=== PATIENT | male | born 1945 | race Caucasian/White ===

== ENCOUNTER 2017-02-06 10:34 | Outpatient (CLI) | payer MEDICARE, BC ==
[2017-02-06 10:48] LABS: Mean Corpuscular HGB CONC 35.4 g/dL (32.0-36.0); Mean Corpuscular Hemoglobin 32.4 pg (27.0-31.0); Mean Corpuscular Volume 91.5 fl (80.0-94.0); Mean Platelet Volume 9.1 fL (7.4-10.4); Platelet Count 154 thou/uL (130-400); RBC Distribution Width 11.8 % (11.5-14.5); Red Blood Cell (RBC) Count 4.94 mill/uL (4.70-6.10)
== END 2017-02-06 10:35 | disposition home or self-care (01) ==
LOC: BURLAB 10:34
PROVIDERS: ATTEND Specialist
DX: D75.1 Secondary polycythemia (principal)
CPT/HCPCS: 36415; 85027

== ENCOUNTER 2017-09-05 17:25 | Emergency (ER) | payer MEDICARE, BC ==
[2017-09-05] MEDS ORDERED: Insulin Regular 300 UNITS/3 ML VIAL ONE (18:06)
[2017-09-05 18:15] LABS: #Basophils 0.1 thou/uL (0.0-0.2); #Lymphocytes 0.8 thou/uL (1.20-3.40); #Monocytes 0.3 thou/uL (0.11-0.59); #Neutrophils 9.3 thou/uL (1.40-6.50); %Basophils 0.5 % (0.0-1.0); %Eosinophils 0.1 % (0.0-10.0); %Lymphocytes 7.6 % (21.0-51.0); %Monocytes 2.5 % (0.0-10.0); %Neutrophils 89.4 % (42.0-75.0); Hemoglobin 14.7 g/dL (14.0-18.0); Mean Corpuscular HGB CONC 34.9 g/dL (32.0-36.0); Mean Corpuscular Hemoglobin 32.7 pg (27.0-31.0); Mean Corpuscular Volume 93.9 fl (80.0-94.0); Mean Platelet Volume 8.3 fL (7.4-10.4); Platelet Count 206 thou/uL (130-400); RBC Distribution Width 10.8 % (11.5-14.5); Red Blood Cell (RBC) Count 4.49 mill/uL (4.70-6.10); White Blood Cell (WBC) Count 10.4 thou/uL (4.8-10.8)
[2017-09-05 18:32] LABS: ALT (SGPT) 44 U/L (8-55); AST (SGOT) 18 U/L (5-34); Alkaline Phosphatase 93 U/L (40-150); Anion Gap 17 mmol/L (10-20); BUN (Urea Nitrogen) 23 mg/dL (8.4-25.7); Calc. Creatinine Clearance 0 mL/min (70-130); Calcium 8.9 mg/dL (7.8-10.44); Carbon Dioxide 20 mmol/L (23-31); Chloride 101 mmol/L (98-107); Estimated GFR-MDRD 44; Globulin 3.3 g/dL (2.4-3.5); Glucose 403 mg/dL (83-110); Potassium 4.5 mmol/L (3.5-5.1); Protein, Total 7.3 g/dL (5.8-8.1); Sodium 133 mmol/L (136-145)
== END 2017-09-05 19:55 | disposition home or self-care (01) ==
LOC: BURERS 17:25
DX: E11.65 Type 2 diabetes mellitus with hyperglycemia (principal); M54.16 Radiculopathy, lumbar region; Z79.84 Long term (current) use of oral hypoglycemic drugs; Z79.899 Other long term (current) drug therapy
CPT/HCPCS: 36416; 80053; 85025; 96360; J1815

== ENCOUNTER 2019-03-18 16:38 | Emergency (ER) | payer MEDICARE, BC ==
[2019-03-18] MEDS ORDERED: Ondansetron PF 4 MG/2 ML Vial ONE ×3 (17:24→21:29)
[2019-03-18 18:00] LABS: #Basophils 0.1 thou/uL (0.0-0.2); #Eosinphils 0.2 thou/uL (0.0-0.7); #Lymphocytes 1.4 thou/uL (1.20-3.40); #Monocytes 0.6 thou/uL (0.11-0.59); #Neutrophils 10.5 thou/uL (1.40-6.50); %Basophils 1.1 % (0.0-1.0); %Eosinophils 1.9 % (0.0-10.0); %Lymphocytes 10.6 % (21.0-51.0); %Monocytes 4.8 % (0.0-10.0); %Neutrophils 81.6 % (42.0-75.0); Hemoglobin 13.7 g/dL (14.0-18.0); Mean Corpuscular HGB CONC 32.8 g/dL (32.0-36.0); Mean Corpuscular Hemoglobin 30.6 pg (27.0-31.0); Mean Corpuscular Volume 93.4 fL (78.0-98.0); Platelet Count 187 thou/uL (130-400); RBC Distribution Width 11.4 % (11.5-14.5); Red Blood Cell (RBC) Count 4.48 mill/uL (4.70-6.10); White Blood Cell (WBC) Count 12.9 thou/uL (4.8-10.8)
[2019-03-18 18:14] LABS: ALT (SGPT) 33 U/L (8-55); AST (SGOT) 23 U/L (5-34); Albumin 4.1 g/dL (3.4-4.8); Alkaline Phosphatase 83 U/L (40-150); Anion Gap 13 mmol/L (10-20); BUN (Urea Nitrogen) 12 mg/dL (8.4-25.7); Bilirubin, Total 0.9 mg/dL (0.2-1.2); Calc. Creatinine Clearance 0 mL/min (70-130); Calcium 9.7 mg/dL (7.8-10.44); Carbon Dioxide 24 mmol/L (23-31); Chloride 101 mmol/L (98-107); Estimated GFR-MDRD 53; Globulin 3.1 g/dL (2.4-3.5); Glucose 164 mg/dL (83-110); Potassium 4.1 mmol/L (3.5-5.1); Protein, Total 7.2 g/dL (5.8-8.1); Sodium 134 mmol/L (136-145)
[2019-03-18] MEDS ORDERED: Magnesium Citrate 300 ML BOT ONE (18:39)
[2019-03-18] MEDS ORDERED: Metoclopramide HCl 10 MG/2 ML VIAL ONE (18:39)
--- NOTE | 2019-03-18 19:25 | RAD ---
ACUTE ABDOMEN SERIES: 03/18/2019 COMPARISON: Chest film from 02/08/2013. FINDINGS: The abdominal portion of this study shows no free air beneath the diaphragm. The gas pattern is nons pecific, with gas being mostly in the colon, but some is seen in a few loops of small bowel. There d oes not appear to be any great small bowel dilation at the moment to suggest obstruction. A moderate amount of fecal material is seen in the colon. No calcifications of concern are seen. Some phlebol iths are present in the pelvis. A calcification over the left iliac crest does not appear concerning and was present on a 04/07/2015 lumbar spine series. Some mild degenerative changes are seen in the spine itself. IMPRESSION: 1. Nonspecific abdominal findings. 2. Perhaps mild constipation. POS: HOME
[2019-03-18] MEDS ORDERED: Fleet Enema 133 ML BOT ONE ×2 (19:43→19:44)
[2019-03-18] MEDS ORDERED: Morphine 4 MG/ML VIAL ONE (19:54)
== END 2019-03-18 22:52 | disposition home or self-care (01) ==
LOC: BURERS 16:38
DX: K52.9 Noninfective gastroenteritis and colitis, unspecified (principal); K59.00 Constipation, unspecified; F41.9 Anxiety disorder, unspecified; F32.9 Major depressive disorder, single episode, unspecified; E11.9 Type 2 diabetes mellitus without complications; Z79.82 Long term (current) use of aspirin; Z79.899 Other long term (current) drug therapy
CPT/HCPCS: 36416; 74022; 80053; 83605; 85025; 93005; 96361; 96374; 96375; 96376; J2270; J2405; J2765

== ENCOUNTER 2019-03-19 02:37 | Emergency (ER) | payer MEDICARE, BC ==
[2019-03-19] MEDS ORDERED: Promethazine HCl 25 MG/ML VIAL ONE (02:53)
[2019-03-19] MEDS ORDERED: Morphine 4 MG/ML VIAL ONE (02:53)
[2019-03-19 02:57] LABS: #Basophils 0.1 thou/uL (0.0-0.2); #Lymphocytes 1.1 thou/uL (1.20-3.40); #Monocytes 0.6 thou/uL (0.11-0.59); #Neutrophils 17.4 thou/uL (1.40-6.50); %Basophils 0.4 % (0.0-1.0); %Eosinophils 0.1 % (0.0-10.0); %Lymphocytes 5.5 % (21.0-51.0); Hemoglobin 14.2 g/dL (14.0-18.0); Mean Corpuscular HGB CONC 33.8 g/dL (32.0-36.0); Mean Corpuscular Hemoglobin 30.7 pg (27.0-31.0); Mean Corpuscular Volume 90.8 fL (78.0-98.0); Mean Platelet Volume 8.3 fL (7.4-10.4); Platelet Count 200 thou/uL (130-400); RBC Distribution Width 11.1 % (11.5-14.5); Red Blood Cell (RBC) Count 4.62 mill/uL (4.70-6.10); White Blood Cell (WBC) Count 19.1 thou/uL (4.8-10.8)
[2019-03-19] MEDS ORDERED: Famotidine In NaCl 20 mg/50 ml Premix Bag ONE (03:00)
[2019-03-19 03:15] LABS: ALT (SGPT) 32 U/L (8-55); AST (SGOT) 20 U/L (5-34); Albumin 4.3 g/dL (3.4-4.8); Alkaline Phosphatase 83 U/L (40-150); Anion Gap 17 mmol/L (10-20); BUN (Urea Nitrogen) 12 mg/dL (8.4-25.7); Bilirubin, Total 1.4 mg/dL (0.2-1.2); Calc. Creatinine Clearance 0 mL/min (70-130); Calcium 9.4 mg/dL (7.8-10.44); Carbon Dioxide 22 mmol/L (23-31); Chloride 98 mmol/L (98-107); Estimated GFR-MDRD 55; Globulin 3.4 g/dL (2.4-3.5); Glucose 252 mg/dL (83-110); Potassium 4.5 mmol/L (3.5-5.1); Protein, Total 7.7 g/dL (5.8-8.1); Sodium 132 mmol/L (136-145)
[2019-03-19] MEDS ORDERED: Piperacillin/Tazobactam 4.5 GM VIAL ONE (03:58)
--- NOTE | 2019-03-19 08:02 | CT ---
PRELIMINARY REPORT/[facility]/EMERGENTY AFTER-HOURS PROCEDURE Addendum created by Cheo Church MD on 03/19/2019 4:00 AM Central Time ([place] & [place]) THIS REPORT CONTAI NS FINDINGS THAT MAY BE CRITICAL TO PATIENT CARE. The findings were verbally communicated via telepho ne conference with SMITHA PEDROZA at 4:00 AM CDT on 03/19/2019. The findings were acknowledged and un derstood. Initial Report created on 03/19/2019 3:55 AM Central Time ([place] & [place]) CT Abdomen and Pelvis With Contrast EXAM DATE/TIME: 03/19/2019 3:09 AM CLINICAL HISTORY: 73 years old, male; Abdominal pain; Generalized; Patient HX: Llq pain nausea bloating TECHNIQUE: Imaging protocol: Axial computed tomography images of the abdomen and pelvis with intravenous contras t. Radiation optimization: All CT scans at this facility use at least one of these dose optimization rhonda hniques: automated exposure control; mA and/or kV adjustment per patient size (includes targeted exam s where dose is matched to clinical indication); or iterative reconstruction. Contrast material: ISOVUE; Contrast volume: 70 ml; Contrast route: 20GA RT AC; COMPARISON: No relevant prior studies available. FINDINGS: ABDOMEN: Liver: Normal. Gallbladder and bile ducts: Normal. Pancreas: Normal. Spleen: Normal. Adrenals: Normal. Kidneys and ureters: Normal. Stomach and bowel: Scattered colonic diverticulosis. Appendix: Proximal appendix is abnormally dilated, measuring up to 13 mm in maximal diameter. Mild appendiceal wall thickening and hyper enhancement, with minimal adjacent associated inflammatory stranding. No perforation or abscess. Appendix is located in conventional position. PELVIS: Bladder: Unremarkable as visualized. Reproductive: Unremarkable as visualized. ABDOMEN and PELVIS: Intraperitoneal space: Normal. No free air. No significant fluid collection. Bones/joints: Degenerative changes of the hips and sacroiliac joints. Available thoracolumbar spine degenerative changes. Soft tissues: Normal. Vasculature: Phleboliths within the pelvis. Lymph nodes: Normal. No enlarged lymph nodes. IMPRESSION: Acute appendicitis, without evidence of perforation or abscess. Thank you for allowing us to participate in the care of your patient. Dictated and Authenticated by: Cheo Church MD 03/19/2019 3:55 AM Central Time ([place] & [place]) FINAL REPORT: CT ABDOMEN AND PELVIS WITH CONTRAST: Date: 03-19-[address] of the abdomen and pelvis was done after giving IV contrast. Oral contrast was withheld by request. FINDINGS: The lung bases are clear except for some dependent atelectasis. No acute abnormalities of the liver, spleen, pancreas, gallbladder, adrenal glands, kidneys or abdominal aorta were seen. The major finding on the study is a dilated fluid filled appendix measuring up to 1.3 cm in width pro ximally. There is a very small amount of perinephric stranding around it. There is no sign of abscess or gross perforation. No free air or free fluid was seen in the abdomen. CT pelvis was remarkable only for the appendiceal findings. No pelvic masses, fluid collections, or d iverticulitis could be found. The bony structures appeared appropriate for age. IMPRESSION: Findings consistent with acute appendicitis without obvious perforation. Report in agreement with the preliminary reading by ALISON. POS: HOME
[2019-03-19] MEDS ORDERED: Iopamidol 370 76% 100 ML VIAL ONE (10:02)
== END 2019-03-19 04:40 | disposition short-term general hospital (02) ==
LOC: BURERS 02:37
DX: K35.80 Unspecified acute appendicitis (principal); F41.9 Anxiety disorder, unspecified; F32.9 Major depressive disorder, single episode, unspecified
CPT/HCPCS: 74177; 80053; 83605; 85025; 96365; 96367; 96375; J2270; J2543; J2550; Q9967

== ENCOUNTER 2019-10-14 14:40 | Emergency (ER) | payer MEDICARE, BC ==
--- NOTE | 2019-10-14 15:22 | RAD ---
EXAM: Chest 2 views: HISTORY: Cough COMPARISON: None. FINDINGS: There is a normal-sized cardiomediastinal silhouette. There is no evidence of consolidation, mass, or pleural effusion. The bones are unremarkable. IMPRESSION: No evidence of acute cardiopulmonary disease
[2019-10-14] MEDS ORDERED: Ketorolac Tromethamine 30 MG/ML VIAL ONE (15:56)
== END 2019-10-14 16:02 | disposition home or self-care (01) ==
LOC: BURERS 14:40
DX: J11.1 Influenza due to unidentified influenza virus with other respiratory manifestations (principal); E11.9 Type 2 diabetes mellitus without complications; F41.9 Anxiety disorder, unspecified; F32.9 Major depressive disorder, single episode, unspecified; Z79.82 Long term (current) use of aspirin; Z79.899 Other long term (current) drug therapy; Z79.84 Long term (current) use of oral hypoglycemic drugs
CPT/HCPCS: 71046; 87804; 96372; J1885

== ENCOUNTER 2020-04-11 16:29 | Emergency (ER) | payer MEDICARE, BC | END 2020-04-11 17:19 | disposition home or self-care (01) | LOC: BURERS 16:29 | DX: H53.8 Other visual disturbances (principal); E11.9 Type 2 diabetes mellitus without complications; Z79.84 Long term (current) use of oral hypoglycemic drugs; Z79.82 Long term (current) use of aspirin; Z79.899 Other long term (current) drug therapy | CPT/HCPCS: 36416; 99283 ==

== ENCOUNTER 2021-01-17 18:02 | Emergency (ER) | payer BC, MEDICARE ==
[2021-01-17] MEDS ORDERED: Tetracaine 0.5% PF 4 ML BOT ONE (18:14)
[2021-01-17] MEDS ORDERED: Fluorescein Opthalmic Strip ONE (18:14)
[2021-01-17] MEDS ORDERED: Neomycin-Polymyxin-Hc 7.5 ML BOT ONE (18:20)
== END 2021-01-17 18:32 | disposition home or self-care (01) ==
LOC: BURERS 18:02
DX: H10.211 Acute toxic conjunctivitis, right eye (principal); E11.9 Type 2 diabetes mellitus without complications; Z79.84 Long term (current) use of oral hypoglycemic drugs; Z79.82 Long term (current) use of aspirin; Z79.899 Other long term (current) drug therapy
CPT/HCPCS: 99283

== ENCOUNTER 2022-02-24 08:23 | Emergency (ER) | payer BC, MEDICARE ==
[2022-02-24] MEDS ORDERED: Boostrix 0.5 ML (Tdap) VIAL ONE (09:59)
[2022-02-24] MEDS ORDERED: Bacitracin 1 PK ONE (09:59)
== END 2022-02-24 10:10 | disposition home or self-care (01) ==
LOC: BURERS 08:23
DX: S61.111A Laceration without foreign body of right thumb with damage to nail, initial encounter (principal); E11.9 Type 2 diabetes mellitus without complications; W23.0XXA Caught, crushed, jammed, or pinched between moving objects, initial encounter; Z23 Encounter for immunization; Z79.82 Long term (current) use of aspirin; Z79.84 Long term (current) use of oral hypoglycemic drugs; Z79.899 Other long term (current) drug therapy
CPT/HCPCS: 12001; 90471; 90715

== ENCOUNTER 2025-02-26 15:33 | Emergency (ER) | payer MEDICARE ==
[2025-02-26] MEDS ORDERED: Ondansetron ODT 4 MG TAB ONE (16:34)
[2025-02-26] MEDS ORDERED: traMADol HCl 50 MG TAB ONE (16:35)
== END 2025-02-26 16:40 | disposition home or self-care (01) ==
LOC: BURERS 15:33
DX: S90.32XA Contusion of left foot, initial encounter (principal); S70.02XA Contusion of left hip, initial encounter; E11.9 Type 2 diabetes mellitus without complications; W19.XXXA Unspecified fall, initial encounter
CPT/HCPCS: 72170; 73502; 73630; Q0162; 99283

== ENCOUNTER 2025-06-20 12:08 | Emergency (ER) | payer MEDICARE, OTHER ==
[~2025-06-20 12:08] MED LIST: Iopamidol 370 76% 100 ML VIAL ONE
[2025-06-20 12:27] LABS: #Basophils 0.1 thou/uL (0.0-0.2); #Eosinophils 0.5 thou/uL (0.0-0.7); #Lymphocytes 1.5 thou/uL (1.20-3.40); #Monocytes 0.4 thou/uL (0.11-0.59); #Neutrophils 4.0 thou/uL (1.40-6.50); %Basophils 1.1 % (0.0-1.0); %Eosinophils 7.0 % (0.0-10.0); %Lymphocytes 23.8 % (21.0-51.0); %Monocytes 6.5 % (0.0-10.0); %Neutrophils 61.5 % (42.0-75.0); Hematocrit 32.2 % (42.0-52.0); Hemoglobin 12.0 g/dL (14.0-18.0); Mean Corpuscular Hemoglobin 33.7 pg (27.0-31.0); Mean Corpuscular Volume 90.3 fl (78.0-98.0); Platelet Count 153 10x3/uL (130-400); Red Blood Cell (RBC) Count 3.56 mill/uL (4.70-6.10); White Blood Cell (WBC) Count 6.5 10x3/uL (4.8-10.8)
[2025-06-20 12:28] LABS: MDiff Complete? YES
[2025-06-20 12:29] LABS: INR-International Normal Ratio 2.0; Prothrombin Time 22.5 sec (12.0-14.7)
[2025-06-20 12:30] LABS: PTT 46.3 sec (22.9-36.1)
[2025-06-20 12:41] LABS: ALT (SGPT) 12 U/L (Less than 45); AST (SGOT) 21 U/L (11-34); Albumin 3.9 g/dL (3.1-4.5); Alkaline Phosphatase 89 U/L (40-110); Anion Gap 15 mmol/L (10-20); BUN (Urea Nitrogen) 18 mg/dL (8.4-25.7); Bilirubin, Total 0.7 mg/dL (0.3-1.2); Calc. Creatinine Clearance 0 mL/min (70-130); Calcium 9.1 mg/dL (7.8-10.44); Carbon Dioxide 21 mmol/L (23-31); Chloride 105 mmol/L (98-107); Globulin 3.2 g/dL (2.4-3.5); Glucose 198 mg/dL (83-110); Potassium 4.2 mmol/L (3.5-5.1); Sodium 137 mmol/L (136-145); Troponin I Less than 0.010 ng/mL (< 0.028)
== END 2025-06-20 14:57 | disposition short-term general hospital (02) ==
LOC: BURERS 12:08
DX: I63.9 Cerebral infarction, unspecified (principal); R29.702 NIHSS score 2; E11.9 Type 2 diabetes mellitus without complications
CPT/HCPCS: 36416; 70450; 70496; 70498; 80053; 84484; 85025; 85610; 85730; 93005; 94760; Q9967